=== PATIENT | male | born 1965 | race African-American/Black ===

== ENCOUNTER 2022-07-22 20:41 | Emergency (ER) | payer OTHER ==
[~2022-07-22] VITALS: Ht 167.6 cm; Wt 87.0 kg
[~2022-07-22 20:41] MED LIST: AMLODIPINE; ASPI-1406 PO; ASPIRIN; COR3 PO; DILT120C88 PO; FURO-151 PO; LISI1TAB11 PO; MECL25TA3 PO; SULF1TAB47 PO; TRIAMTERENE
[2022-07-22 22:55] LABS: BASOPHILS % 0.4 % (0.0-2.0); EOSINOPHILS % 2.5 % (0.0-5.0); HEMATOCRIT. 42.8 % (42.0-52.0); HEMOGLOBIN. 14.7 g/dL (14.0-18.0); LYMPHOCYTES % 23.2 % (20.0-50.0); MEAN CORPUSCULAR HEMOGLOBIN 30.6 pg (28.0-32.0); MEAN CORPUSCULAR VOLUME 88.8 fL (80.0-94.0); MEAN PLATELET VOLUME 7.9 fl (7.4-10.4); MONOCYTES % 10.7 % (2.0-8.0); NEUTROPHILS % 63.2 % (40.0-76.0); PLATELET 368 x1000/uL (130-400); RED BLOOD CELL COUNT 4.82 mill/uL (4.7-6.1); RED CELL DISTRIBUTION WIDTH 13.3 % (11.6-14.6)
[2022-07-22 23:00] LABS: CHLORIDE 104 mEq/L (98-107)
[2022-07-22 23:26] VITALS: BP 153/111
== END 2022-07-22 23:30 | disposition left against medical advice (07) ==
LOC: ER 20:41
DX: R06.02 Shortness of breath (principal); I11.0 Hypertensive heart disease with heart failure; I50.9 Heart failure, unspecified; Z79.82 Long term (current) use of aspirin; Z91.198 Patient's noncompliance with other medical treatment and regimen for other reason
CPT/HCPCS: 36415; 71045; 80053; 83880; 84484; 85025; 93005; 99285

== ENCOUNTER 2024-02-24 04:33 | Inpatient (IN) | payer SELFPAY ==
[~2024-02-24] VITALS: Ht 165.1 cm; Wt 87.7 kg
[2024-02-24] VITALS (14 sets, daily range): BP systolic 127–168; BP diastolic 101–138; PULSE 88–104; RESP 15–28; TEMP 97.2–97.8
[2024-02-24] MEDS ORDERED: NICARDIPINE 100 MG in SODIUM CHLORIDE 0.9% 60 ML IV ONE (04:45)
[2024-02-24] MEDS ORDERED: AMIODARONE HCL 900 MG in DEXT 5% WATER 500 ML IV ONE (04:45)
[2024-02-24] MEDS ORDERED: AMIODARONE HCL 150 MG in DEXT 5% WATER 100 ML IV ONE (04:45)
[2024-02-24] MEDS: NICARDIPINE 40 MG/200 ML PREMIX 200 ML IV STA (04:57)
[2024-02-24] MEDS: AMIODARONE 150MG/100ML 100 ML IV NR (04:59)
[2024-02-24] MEDS: FUROSEMIDE 40MG/4ML VIAL IV ONE (05:03)
[2024-02-24] MEDS: ONDANSETRON HCL 4MG/2ML INJ IV STA (05:03)
[2024-02-24] MEDS: AMIODARONE HCL 900 MG in DEXT 5% WATER 500 ML IV PRN (05:17)
[2024-02-24 05:44] LABS: CHLORIDE 105 mEq/L (98-107); POTASSIUM 3.5 mEq/L (3.5-5.1); SODIUM 138 mEq/L (136-145)
[2024-02-24 05:45] LABS: CALCIUM 8.5 mg/dL (8.7-10.4); CARBON DIOXIDE 27 mEq/L (21-32)
[2024-02-24 05:50] LABS: CREATININE 2.1 mg/dL (0.6-1.3); GLUCOSE 222 mg/dL (70-105); UREA NITROGEN BLOOD 19 mg/dL (9-23)
[2024-02-24 05:52] LABS: BASOPHILS % 0.3 % (0.0-2.0); EOSINOPHILS % 2.5 % (0.0-5.0); HEMATOCRIT. 44.7 % (42.0-52.0); HEMOGLOBIN. 14.6 g/dL (14.0-18.0); LYMPHOCYTES % 53.1 % (20.0-50.0); MEAN CORPUSCULAR HEMOGLOBIN 29.4 pg (28.0-32.0); MEAN CORPUSCULAR HGB CONC 32.6 g/dL (31.0-37.0); MEAN CORPUSCULAR VOLUME 90.3 fL (80.0-94.0); MEAN PLATELET VOLUME 9.5 fl (7.4-10.4); MONOCYTES % 10.8 % (2.0-8.0); NEUTROPHILS % 33.3 % (40.0-76.0); PLATELET 298 x1000/uL (130-400); RED BLOOD CELL COUNT 4.95 mill/uL (4.7-6.1); RED CELL DISTRIBUTION WIDTH 13.3 % (11.6-14.6); WHITE BLOOD COUNT 6.9 x1000/uL (4.5-11.0)
[2024-02-24 06:12] LABS: TROPONIN I HIGH SENSITIVITY 206 ng/L (3.0-53)
[2024-02-24 07:38] LABS: TROPONIN I HIGH SENSITIVITY 448 ng/L (3.0-53)
[2024-02-24] MEDS ORDERED: MAGNESIUM/ALUMINUM HYDROXIDE/SIMETHICONE 30ML UDC PO PRN (08:30)
[2024-02-24] MEDS ORDERED: ONDANSETRON HCL 4MG/2ML INJ IV PRN (08:30)
[2024-02-24] MEDS ORDERED: DOCUSATE SODIUM 100MG CAPSULE PO PRN (08:30)
[2024-02-24] MEDS ORDERED: ACETAMINOPHEN 325MG TABLET PO PRN ×2 (08:30)
[2024-02-24] MEDS ORDERED: IPRATROPIUM/ALBUTEROL 0.5-3(2.5)MG/3ML NEB HHN PRN (08:30)
[2024-02-24] MEDS ORDERED: NITROGLYCERIN 0.4MG TABLET SL SL PRN (08:30)
[2024-02-24] MEDS ORDERED: GUAIFENESIN 200MG/10ML SUGAR FREE UDC PO PRN (08:30)
[2024-02-24] MEDS ORDERED: CLONIDINE 0.1MG TABLET PO PRN (08:30)
[2024-02-24 08:57] LABS: TRIGLYCERIDE 99 mg/dL (0-150)
[2024-02-24 08:58] LABS: LDL CHOLESTEROL 102 mg/dL (5-100)
[2024-02-24 08:59] LABS: ALANINE AMINOTRANSFERASE 22 IU/L (10-49); ALBUMIN 4.5 g/dL (3.2-4.8); ASPARTATE AMINOTRANSFERASE 26 IU/L (<34); BILIRUBIN DIRECT 0.1 mg/dL (<=3.0); CHOLESTEROL 158 mg/dL (<200); HDL CHOLESTEROL 35 mg/dL (>55); PHOSPHORUS 3.7 mg/dL (2.5-4.9)
[2024-02-24 09:00] LABS: BILIRUBIN TOTAL 0.4 mg/dL (0.1-1.0); PROTEIN TOTAL 7.4 g/dL (6.0-8.3)
[2024-02-24 09:01] LABS: T4 FREE 1.52 ng/dL (0.89-1.76); THYROID STIMULATING HORMONE 1.54 uIU/mL (0.55-4.78)
[2024-02-24 09:11] LABS: TROPONIN I HIGH SENSITIVITY 581 ng/L (3.0-53)
[2024-02-24] MEDS: FUROSEMIDE 40MG/4ML VIAL IV SCH ×2 (09:18→20:36)
[2024-02-24] MEDS: ASPIRIN 81MG EC TABLET PO SCH (09:18)
[2024-02-24] MEDS: ENOXAPARIN 40MG/0.4ML SYR SUBCUT SCH (09:18)
[2024-02-24] MEDS: CARVEDILOL 3.125 MG TABLET PO SCH (09:37)
[2024-02-24] MEDS ORDERED: DEXTROSE 50% WATER 50ML SYRINGE IV PRN (09:45)
[2024-02-24] MEDS: DILTIAZEM HCL 120MG CAPSULE ER 24HR PO SCH (10:02)
[2024-02-24] MEDS: AMLODIPINE 5MG TABLET PO SCH (10:21)
[2024-02-24] MEDS: POTASSIUM CHLORIDE 20MEQ/PACKET PO NR (10:41)
[2024-02-24] MEDS: ENOXAPARIN 120MG/0.8ML SYR SUBCUT SCH (10:42)
[2024-02-24] MEDS: AMIODARONE 200MG TABLET PO SCH (10:53)
[2024-02-24 11:03] LABS: INR 0.9; PROTHROMBIN TIME 10.3 sec (9.6-11.0)
[2024-02-24 11:38] LABS: TROPONIN I HIGH SENSITIVITY 563 ng/L (3.0-53)
[2024-02-24] MEDS ORDERED: AMIODARONE HCL 900 MG in DEXT 5% WATER 482 ML IV SCH (12:00)
[2024-02-24] MEDS: BLOOD SUGAR DIAGNOSTIC STRIP TEST SCH (12:46)
[2024-02-24] MEDS: INSULIN LISPRO 100 UNITS/ML SUBCUT SCH (12:53)
[2024-02-24] MEDS: FUROSEMIDE 40MG/4ML VIAL IVP NR (15:44)
[2024-02-24 16:25] LABS: TROPONIN I HIGH SENSITIVITY 561 ng/L (3.0-53)
[2024-02-24 17:45] LABS: CLARITY URINE CLEAR (CLEAR); COLOR URINE YELLOW (YELLOW); GLUCOSE URINE NEGATIVE (NEGATIVE); KETONES URINE NEGATIVE (NEGATIVE); LEUKOCYTE ESTERASE URINE NEGATIVE (NEGATIVE); NITRITE URINE NEGATIVE (NEGATIVE); OCCULT BLOOD URINE NEGATIVE (NEGATIVE); PH URINE 6.5 (4.5-8.0); PROTEIN URINE NEGATIVE (NEGATIVE); SPECIFIC GRAVITY URINE 1.007 (1.005-1.030); UROBILINOGEN URINE 0.2 E.U./dL (0.2-1.0)
[2024-02-24 17:53] LABS: *AMPHETAMINES SCREEN URINE NEGATIVE (NEGATIVE); *BENZODIAZEPINES SCREEN URINE NEGATIVE (NEGATIVE)
[2024-02-24 17:54] LABS: *BARBITURATES SCREEN URINE NEGATIVE (NEGATIVE); *COCAINE SCREEN URINE NEGATIVE (NEGATIVE); CANNABINOID URINE SCREEN NEGATIVE (NEGATIVE); ECSTASY MDMA SCREEN URINE NEGATIVE (NEGATIVE); METHADONE URINE SCREEN NEGATIVE (NEGATIVE); OPIATES URINE SCREEN NEGATIVE (NEGATIVE); PHENCYCLIDINE URINE SCREEN NEGATIVE (NEGATIVE)
[2024-02-24] MEDS: CARVEDILOL 6.25 MG TABLET PO SCH (20:37)
[2024-02-24] MEDS: ATORVASTATIN CALCIUM 40MG TABLET PO SCH (21:27)
[2024-02-24] MEDS: ENOXAPARIN 100MG/ML SYR SUBCUT SCH (21:28)
[2024-02-24 23:20] LABS: TROPONIN I HIGH SENSITIVITY 512 ng/L (3.0-53)
[2024-02-25] VITALS (12 sets, daily range): BP systolic 119–149; BP diastolic 87–123; PULSE 81–96; RESP 15–24; TEMP 97–98.7
[2024-02-25] MEDS: CLOPIDOGREL 75MG TABLET PO SCH (14:03)
[2024-02-25] MEDS ORDERED: HYDRALAZINE 20MG/ML VIAL IV PRN (15:45)
[2024-02-25 16:19] LABS: BASOPHILS % 0.6 % (0.0-2.0); EOSINOPHILS % 2.5 % (0.0-5.0); HEMATOCRIT. 46.1 % (42.0-52.0); HEMOGLOBIN. 15.3 g/dL (14.0-18.0); LYMPHOCYTES % 19.3 % (20.0-50.0); MEAN CORPUSCULAR HEMOGLOBIN 29.6 pg (28.0-32.0); MEAN CORPUSCULAR HGB CONC 33.1 g/dL (31.0-37.0); MEAN CORPUSCULAR VOLUME 89.3 fL (80.0-94.0); MEAN PLATELET VOLUME 9.5 fl (7.4-10.4); MONOCYTES % 9.8 % (2.0-8.0); NEUTROPHILS % 67.8 % (40.0-76.0); PLATELET 271 x1000/uL (130-400); RED BLOOD CELL COUNT 5.16 mill/uL (4.7-6.1); RED CELL DISTRIBUTION WIDTH 13.5 % (11.6-14.6); WHITE BLOOD COUNT 5.4 x1000/uL (4.5-11.0)
[2024-02-25 16:29] LABS: CHLORIDE 103 mEq/L (98-107); POTASSIUM 3.6 mEq/L (3.5-5.1); SODIUM 135 mEq/L (136-145)
[2024-02-25 16:30] LABS: CALCIUM 8.8 mg/dL (8.7-10.4); CARBON DIOXIDE 26 mEq/L (21-32)
[2024-02-25 16:35] LABS: CREATININE 2.7 mg/dL (0.6-1.3); GLUCOSE 115 mg/dL (70-105); UREA NITROGEN BLOOD 21 mg/dL (9-23)
[2024-02-25] MEDS: AMIODARONE 200MG TABLET PO SCH (17:39)
[2024-02-25] MEDS: HYDRALAZINE HCL 25MG TABLET PO SCH (21:54)
[2024-02-26] VITALS (12 sets, daily range): BP systolic 94–144; BP diastolic 54–115; PULSE 68–93; RESP 13–28; TEMP 96.8–99.2
[2024-02-26 08:29] LABS: HEMATOCRIT 43.4 % (42.0-52.0); HEMOGLOBIN 14.6 g/dL (14.0-18.0); MEAN CORPUSCULAR HEMOGLOBIN 29.6 pg (28.0-32.0); MEAN CORPUSCULAR HGB CONC 33.5 g/dL (31.0-37.0); MEAN CORPUSCULAR VOLUME 88.4 fL (80.0-94.0); PLATELET 242 x1000/uL (130-400); RED BLOOD CELL COUNT 4.91 mill/uL (4.7-6.1); RED CELL DISTRIBUTION WIDTH 13.2 % (11.6-14.6); WHITE BLOOD COUNT 3.8 x1000/uL (4.5-11.0)
[2024-02-26 08:42] LABS: CARBON DIOXIDE 27 mEq/L (21-32); CHLORIDE 102 mEq/L (98-107); POTASSIUM 3.3 mEq/L (3.5-5.1); SODIUM 137 mEq/L (136-145)
[2024-02-26 08:48] LABS: CREATININE 2.2 mg/dL (0.6-1.3); GLUCOSE 143 mg/dL (70-105)
[2024-02-26 08:49] LABS: UREA NITROGEN BLOOD 27 mg/dL (9-23)
[2024-02-26 08:51] LABS: PHOSPHORUS 3.5 mg/dL (2.5-4.9)
[2024-02-26] MEDS: ISOSORBIDE DINITRATE 10MG TABLET PO SCH (13:08)
[2024-02-26] MEDS: POTASSIUM CHLORIDE 20MEQ TABLET SR PO NR (21:12)
[2024-02-26] MEDS: APIXABAN 5 MG TABLET PO SCH (21:15)
[2024-02-26] MEDS: FUROSEMIDE 40MG TABLET PO SCH (21:15)
[2024-02-27] VITALS (8 sets, daily range): BP systolic 112–132; BP diastolic 80–103; PULSE 77–87; RESP 14–23; TEMP 97.6–98.2; O2SAT 97
[2024-02-27 09:38] LABS: POTASSIUM 3.6 mEq/L (3.5-5.1)
[2024-02-27 09:39] LABS: CALCIUM 9.1 mg/dL (8.7-10.4)
[2024-02-27 09:44] LABS: CREATININE 2.3 mg/dL (0.6-1.3)
[2024-02-27] MEDS ORDERED: CLOP-31 PO (11:58)
[2024-02-27] MEDS ORDERED: LIP40 PO (11:58)
[2024-02-27] MEDS ORDERED: AMI2 PO (11:58)
[2024-02-27] MEDS ORDERED: APIX5TAB PO (11:58)
[2024-02-28] MEDS ORDERED: AMIODARONE 200MG TABLET PO SCH (09:00)
== END 2024-02-27 17:37 | disposition home or self-care (01) | DRG 194 ==
LOC: ER 04:47 → 5EST 05:31 → EDBEDREQSVC 11:22
PROVIDERS: ADMIT Hospitalist; ATTEND Hospitalist
PROC: 5A09357 Assistance with Respiratory Ventilation, Less than 24 Consecutive Hours, Continuous Positive Airway Pressure (ICD-10-PCS; principal; 2024-02-24)
PROC: 4B02XTZ Measurement of Cardiac Defibrillator, External Approach (ICD-10-PCS; 2024-02-24)
DX: I13.0 Hypertensive heart and chronic kidney disease with heart failure and stage 1 through stage 4 chronic kidney disease, or unspecified chronic kidney disease (principal); J96.91 Respiratory failure, unspecified with hypoxia; I21.A1 Myocardial infarction type 2; I50.23 Acute on chronic systolic (congestive) heart failure; E11.22 Type 2 diabetes mellitus with diabetic chronic kidney disease; E66.01 Morbid (severe) obesity due to excess calories; N18.9 Chronic kidney disease, unspecified; I16.9 Hypertensive crisis, unspecified; I25.10 Atherosclerotic heart disease of native coronary artery without angina pectoris; I42.0 Dilated cardiomyopathy; I48.0 Paroxysmal atrial fibrillation; E78.5 Hyperlipidemia, unspecified; N17.9 Acute kidney failure, unspecified; Z79.01 Long term (current) use of anticoagulants; E11.65 Type 2 diabetes mellitus with hyperglycemia; Z79.4 Long term (current) use of insulin; Z79.82 Long term (current) use of aspirin; Z79.899 Other long term (current) drug therapy; Z91.148 Patient's other noncompliance with medication regimen for other reason; Z86.73 Personal history of transient ischemic attack (TIA), and cerebral infarction without residual deficits; Z95.810 Presence of automatic (implantable) cardiac defibrillator; Z68.32 Body mass index [BMI] 32.0-32.9, adult; I25.2 Old myocardial infarction
CPT/HCPCS: 36415; 71045; 80048; 80061; 80076; 80305; 81003; 82962; 83036; 83735; 83880; 84100; 84439; 84443; 84484; 85025; 85027; 93005; 93306; 93970; 94660; 99291; J0282; J1650; J1815; J1940; J2405; J3490; J7050; J7060